=== PATIENT | female | born 1990 | race Hispanic/Latino ===

== ENCOUNTER 2017-11-24 23:25 | Emergency (ER) | payer OTHER ==
[2017-11-25] MEDS ORDERED: NA CHLORIDE 0.9% 500 ML ONE (00:29)
[2017-11-25] MEDS ORDERED: ACETAMINOPHEN 325 MG TABLET ONE (00:30)
[2017-11-25 00:37] LABS: Absolute Lymphocytes (CBC) 2.7 K/uL (0.7-4.9); Absolute Monocytes 0.6 K/uL (0.1-1.3); Absolute Neutrophil 7.1 K/uL (1.8-8.0); Basophils % 0.3 % (0-1.3); Eosinophils % 2.1 % (0-4.4); Hematocrit 37.3 % (36.0-45.0); Lymphocytes % 25.3 % (15.3-44.8); MCH 29.6 pg (27.0-35.0); MCV 86.8 fL (80-100); MPV 10.2 fL (7.6-11.3)
[2017-11-25 00:40] LABS: Urine RBC >50 /HPF (NONE SEEN)
[2017-11-25 00:41] LABS: Urine Bacteria <20 /HPF (<20); Urine Culture Reflex Order REFLEXED; Urine Trichomonas PRESENT (NONE SEEN)
[2017-11-25 00:51] LABS: BUN Blood Urea Nitrogen 8 mg/dL (6-20); Bicarbonate 27 mEq/L (21-31); Glucose Level 91 mg/dL (65-120); Potassium 3.5 mEq/L (3.6-5.0); Sodium Level 136 mEq/L (135-145)
[2017-11-25 01:06] LABS: HCG, Quantitative 810.3 mIU/mL (<5)
[2017-11-25 01:16] LABS: Urine Blood 3+ (NEG); Urine Glucose NEGATIVE (NEG); Urine Protein TRACE (NEG)
--- NOTE | 2017-11-25 01:48 | ER ---
Nurse's Notes [facility] Name: Dorothea Wills Age: 27 yrs Sex: Female : 1990 Arrival Date: 11/24/2017 Time: 23:28 Bed 13 Private MD: Diagnosis: Pelvic pain. demise. Vaginal bleeding. Urinary tract infection Presentation: 11/24 23:30 Presenting complaint: Patient states: that she is approx 12 weeks . This am she fc started to have bright red bleeding and then started to cramp at 1900. States that 10 days ago she went to have ultrasound [facility] and was told that baby had no heart beat. Then went to see Dr Gamino this past and was told to come to ER is any problems but does have follow up tomorrow. Transition of care: patient was not received from another setting of care. Onset of symptoms was November 24, 2017. Risk Assessment: Do you want to hurt yourself or someone else? Patient reports no desire to harm self or others. Initial Sepsis Screen: Does the patient meet any 2 criteria? No. Patient's initial sepsis screen is negative. Does the patient have a suspected source of infection? No. Patient's initial sepsis screen is negative. Care prior to arrival: None. 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 - Social history:: Smoking status: Patient uses tobacco products, denies chronic smoking, but will smoke occasionally. - Ebola Screening: : Patient negative for fever greater than or equal to 101.5 degrees Fahrenheit, and additional compatible Ebola Virus Disease symptoms Patient denies exposure to infectious person Patient denies travel to an Ebola-affected area in the 21 days before illness onset. Screenin:53 Abuse screen: Denies threats or abuse. Nutritional screening: No deficits noted. fc Tuberculosis screening: No symptoms or risk factors identified. Fall Risk None identified. Assessment: 11/25 00:05 Obstetrical Assessment: General assessment: awake and alert. General: Appears in no bs1 apparent distress. uncomfortable, Behavior is calm, cooperative, appropriate for age. Pain: Complains of pain in lower abdomen. Neuro: Level of Consciousness is awake, alert, obeys commands, Oriented to person, place, time, situation, Appropriate for age. Cardiovascular: Denies chest pain, shortness of breath, Heart tones S1 S2 present Capillary refill < 3 seconds Patient's skin is warm and dry. Respiratory: Airway is patent Trachea midline Respiratory effort is even, unlabored, Respiratory pattern is regular, symmetrical, Breath sounds are clear bilaterally. GI: Abdomen is round Bowel sounds present X 4 quads. Reports lower abdominal pain, nausea. : Reports vaginal bleeding that is with clots, moderate flow. EENT: No signs and/or symptoms were reported regarding the EENT system. Derm: Skin is intact, Skin is pink, warm \T\ dry. Musculoskeletal: Circulation, motion, and sensation intact. Capillary refill < 3 seconds, Range of motion: intact in all extremities. 01:15 Reassessment: Patient appears in no apparent distress at this time. Patient and/or bs1 family updated on plan of care and expected duration. Pain level reassessed. Patient is alert, oriented x 3, equal unlabored respirations, skin warm/dry/pink. 02:15 Reassessment: No changes from previously documented assessment. Patient and/or family bs1 updated on plan of care and expected duration. Pain level reassessed. Patient is alert, oriented x 3, equal unlabored respirations, skin warm/dry/pink. Patient denies pain at this time. Vital Signs: 11/24 23:30 BP 101 / 63; Pulse 107; Resp 18; Temp 98.0(O); Pulse Ox 100% on R/A; Weight 60.78 kg fc (R); Height 5 ft. 1 in. (154.94 cm) (R); Pain /10; 11/25 01:51 BP 100 / 66; Pulse 63; Resp 18; Pulse Ox 99% on R/A; cc 11/24 23:30 Body Mass Index 25.32 (60.78 kg, 154.94 cm) Vitals: 00:40 Heart Tones unable to assess. Patient reports ultrasound having no heartbeat last bs1 Saturday. . ED Course: 11/24 23:28 Patient arrived in ED. es 23:30 Arm band placed on Patient placed in an exam room, on a stretcher. fc 23:30 Patient has correct armband on for positive identification. Placed in gown. Bed in low fc position. Call light in reach. 23:44 Olga Marcus, RN is Primary Nurse. bs1 23:52 Triage completed. fc 11/25 00:05 Inserted saline lock: 20 gauge in left antecubital area, using aseptic technique. Blood bs1 collected. 00:16 Rashid Chris MD is Attending Physician. pkl 01:35 Assist provider with pelvic exam: Set up pelvic tray. Performed by Rashid Chris MD Patient bs1 tolerated well. 01:45 Julius Gamino MD is Referral Physician. pkl 02:00 IV discontinued, bleeding controlled, No redness/swelling at site. Pressure dressing bs1 applied. Administered Medications: 00:33 Drug: NS 0.9% 500 ml Route: IV; Rate: bolus; Site: left antecubital; bs1 02:20 Follow up: IV Status: Completed infusion bs1 00:34 Not Given (Duplicate Order): NS 0.9% 500 ml IV at bolus once bs1 00:34 Drug: Tylenol 650 mg Route: PO; bs1 02:20 Follow up: Response: No adverse reaction bs1 01:57 Drug: Flagyl 500 mg Route: PO; bs1 02:20 Follow up: Response: No adverse reaction bs1 01:58 Drug: [place] (7.5 mg-325 mg) 1 tabs Route: PO; bs1 02:20 Follow up: Response: No adverse reaction bs1 Point of Care Testing: Urine : 00:39 hCG Reading: Positive; Control Reading: Positive; bs1 Outcome: 01:47 Discharge ordered by . pkl 01:59 Discharged to home with friend, Dr Chris requested patient call for a ride because bs1 patient drove herself and was given norco. Patient states that her ride is in the lobby waiting. 01:59 Condition: stable 01:59 Discharge instructions given to patient, Instructed on discharge instructions, follow up and referral plans. medication usage, Demonstrated understanding of instructions, follow-up care, medications, Prescriptions given X 1. 02:21 Patient left the ED. bs1 Signatures: Rashid Chris MD MD pkl Salyer, Edna es Chretien, Felicia, RN RN Iliana Jiang Brittany, RN RN bs1
--- NOTE | 2017-11-25 01:48 | EDPHYS ---
Physician Documentation [facility] Name: Dorothea Wills Age: 27 yrs Sex: Female : 1990 Arrival Date: 11/24/2017 Time: 23:28 Bed 13 Private MD: ED Physician Rashid Chris HPI: 11/25 01:32 This 27 yrs old Female presents to ER via Ambulatory with complaints of pkl Vaginal Bleeding, + Preg <12wks. 01:32 The patient presents with pelvic pain, vaginal bleeding that is. Onset: The pkl symptoms/episode began/occurred just prior to arrival, 4 hour(s) ago. Associated signs and symptoms: Pertinent positives: Lower abdominal cramps. 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 Follow up with Dr. Gamino 5 days ago and has another appointment in the morning.. 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 - Social history:: Smoking status: Patient uses tobacco products, denies chronic smoking, but will smoke occasionally. - Ebola Screening: : Patient negative for fever greater than or equal to 101.5 degrees Fahrenheit, and additional compatible Ebola Virus Disease symptoms Patient denies exposure to infectious person Patient denies travel to an Ebola-affected area in the 21 days before illness onset. ROS: 11/25 01:32 Positive for pelvic pain, vaginal bleeding. pkl Eyes: Negative for injury, pain, redness, and discharge, ENT: Negative for injury, pain, and discharge, Neck: Negative for injury, pain, and swelling, Cardiovascular: Negative for chest pain, palpitations, and edema, Respiratory: Negative for shortness of breath, cough, wheezing, and pleuritic chest pain. Abdomen/GI: Positive for abdominal pain, of the suprapubic area. Back: Negative for acute changes. MS/extremity: Negative for acute changes. Skin: Negative for rash. Neuro: Negative for altered mental status. Exam: 01:32 Head/Face: Normocephalic, atraumatic. Eyes: Pupils equal round and reactive to light, pkl extra-ocular motions intact. Lids and lashes normal. Conjunctiva and sclera are non-icteric and not injected. Cornea within normal limits. Periorbital areas with no swelling, redness, or edema. ENT: Nares patent. No nasal discharge, no septal abnormalities noted. Tympanic membranes are normal and external auditory canals are clear. Oropharynx with no redness, swelling, or masses, exudates, or evidence of obstruction, uvula midline. Mucous membranes moist. Neck: Trachea midline, no thyromegaly or masses palpated, and no cervical lymphadenopathy. Supple, full range of motion without nuchal rigidity, or vertebral point tenderness. No Meningismus. Chest/axilla: Normal chest wall appearance and motion. Nontender with no deformity. No lesions are appreciated. Cardiovascular: Regular rate and rhythm with a normal S1 and S2. No gallops, murmurs, or rubs. Normal PMI, no JVD. No pulse deficits. Respiratory: Lungs have equal breath sounds bilaterally, clear to auscultation and percussion. No rales, rhonchi or wheezes noted. No increased work of breathing, no retractions or nasal flaring. 01:32 Abdomen/GI: Bowel sounds: normal, Palpation: soft, mild abdominal tenderness, in the suprapubic area. 01:32 Back: Exam negative for acute changes. 01:32 : Pelvic Exam: Speculum exam: mild bleeding, os that is open, a female associate professor physician was present for the exam. Vital Signs: 11/24 23:30 BP 101 / 63; Pulse 107; Resp 18; Temp 98.0(O); Pulse Ox 100% on R/A; Weight 60.78 kg fc (R); Height 5 ft. 1 in. (154.94 cm) (R); Pain 4/10; 11/25 01:51 BP 100 / 66; Pulse 63; Resp 18; Pulse Ox 99% on R/A; cc 11/24 23:30 Body Mass Index 25.32 (60.78 kg, 154.94 cm) fc MDM: 00:16 Patient medically screened. pkl 01:32 Data reviewed: vital signs, nurses notes, lab test result(s). ED course: Advised to pk keep appoint with Dr. Gamino in the morning. Advised to return if abdominal pain is worse or bleeding is worse or passing blood clots and tissue. 11/25 00:14 Order name: Urine Dipstick--Ancillary (enter results); Complete Time: : eb 11/25 00:14 Order name: Urine --Ancillary (enter results); Complete Time: : eb 11/25 00:15 Order name: Urine Microscopic Only; Complete Time: : bs1 11/25 00:27 Order name: CBC with Diff; Complete Time: : pkl 11/25 00:27 Order name: Chem 7; Complete Time: : pkl 11/25 00:27 Order name: Quantitative Hcg; Complete Time: 01: pkl 11/25 00:42 Order name: Urine Culture EDMS Administered Medications: 00:33 Drug: NS 0.9% 500 ml Route: IV; Rate: bolus; Site: left antecubital; bs1 02:20 Follow up: IV Status: Completed infusion bs1 00:34 Not Given (Duplicate Order): NS 0.9% 500 ml IV at bolus once bs1 00:34 Drug: Tylenol 650 mg Route: PO; bs1 02:20 Follow up: Response: No adverse reaction bs1 01:57 Drug: Flagyl 500 mg Route: PO; bs1 02:20 Follow up: Response: No adverse reaction bs1 01:58 Drug: [place] (7.5 mg-325 mg) 1 tabs Route: PO; bs1 02:20 Follow up: Response: No adverse reaction bs1 Point of Care Testing: Urine : 00:39 hCG Reading: Positive; Control Reading: Positive; bs1 Disposition: 11/25/17 01:47 Discharged to Home. Impression: Pelvic pain. demise. Vaginal bleeding. Urinary tract infection. - Condition is Stable. - Prescriptions for Flagyl 500 mg Oral Tablet - take 1 tablet by ORAL route every 8 hours for 7 days; 21 tablet. - Medication Reconciliation Form, Thank You Letter, Antibiotic Education, Prescription Opioid Use form. - Follow up: Julius Gamino MD; When: Today; Reason: Re-evaluation by your physician. - Problem is new. - Symptoms have improved. Signatures: Dispatcher [employer] EDRashid Ruiz MD MD pkl Chretien, Felicia, RN RN Olga Marcus RN RN bs1 Corrections: (The following items were deleted from the chart) 02:21 01:47 11/25/2017 01:47 Discharged to Home. Impression: Pelvic pain. demise. bs1 Vaginal bleeding. Urinary tract infection. Condition is Stable. Forms are Medication Reconciliation Form, Thank You Letter, Antibiotic Education, Prescription Opioid Use. Follow up: Julius Gamino; When: Today; Reason: Re-evaluation by your physician. Problem is new. Symptoms have improved. pkl
[2017-11-25] MEDS ORDERED: HYDROCODONE/APAP 7.5/325 MG TAB ONE (01:55)
[2017-11-25] MEDS ORDERED: metroNIDAZOLE 500 MG TABLET ONE (01:55)
[2017-11-25 03:51] VITALS: TEMP 98
[2017-11-25 03:52] VITALS: BP 100/66; O2SAT 99
== END 2017-11-25 02:21 | disposition home or self-care (01) ==
LOC: ER 23:25
DX: O02.1 Missed abortion (principal); N39.0 Urinary tract infection, site not specified; F17.200 Nicotine dependence, unspecified, uncomplicated
CPT/HCPCS: 36415; 80048; 81003; 81015; 81025; 84702; 85025; 87086; 87088; 96360; 96361; 99284

== ENCOUNTER 2020-02-11 04:18 | Inpatient (IN) | payer OTHER ==
[~2020-02-11 04:18] MED LIST: BUTORPHANOL 1 MG/ML INJ IV PRN; CARBOPROST TROME 250 MCG/ML IM PRN; METHYLERGONOVINE 0.2MG/ML AMP IM PRN; OXYTOCIN/LR 20 UNIT/1,000 ML BAG IV SCH; PENICILLIN 5 MU in NA CHLORIDE 0.9% 100 ML IV ONE; PENICILLIN G POT 5 MU/100 ML IVPB IV ONE; PROMETHAZINE INJ 25 MG/ML AMP IM PRN; Ringers Lactate 1,000 ML IV PRN; Ringers Lactate 1,000 ML IV SCH
--- OUTSIDE RECORDS SUMMARY | 2020-02-11 04:20 | XMS REPORT | Continuity of Care Document ---
:1990 Author Organization [facility] t Address [address] [place] [address] Care Team Providers Name Role Phone Lab, Luiz Pob I Attending Clinician Unavailable Nilson Foy Attending Clinician Problems This patient has no known problems. Allergies, Adverse Reactions, Alerts This patient has no known allergies or adverse reactions. Medications This patient has no known medications. Procedures This patient has no known procedures. Encounters Start End Encounter Admission Attending Care Care Encounter Source Date/Time Date/Time Type Type Clinicians Facility Department ID 2019-12-08 2019-12-08 Laboratory Lab, [facility] [id number] 15:53:07 16:13:07 Only Fam [facility] [id number] [place] [id number] Professio [id number] [address]al [address] 2019-01-05 2019-01-05 Office RIKY [facility] [id number] 13:23:05 14:22:38 Visit Katiana Devine [employer]AL [employer]AMINER [id number] [facility] [id number] MATERNAL [id number] & CHILD [address] [place] [address] Results This patient has no known results.
[2020-02-11 05:03] VITALS: BMI 29.2
[2020-02-11] MEDS ORDERED: Ringers Lactate 1,000 ML IV ONE ×2 (05:21→05:45)
[2020-02-11 05:33] LABS: Absolute Lymphocytes (CBC) 2.3 K/uL (0.7-4.9); Basophils % 0.5 % (0-1.3); Lymphocytes % 23.6 % (15.3-44.8); MPV 10.1 fL (7.6-11.3); RBC Red Blood Cell Count 4.11 M/uL (3.86-4.86)
[2020-02-11 05:45] LABS: Urine Appearance CLOUDY; Urine Bilirubin NEGATIVE (NEG); Urine Blood TRACE (NEG); Urine Color YELLOW; Urine Glucose NEGATIVE (NEG); Urine Protein NEGATIVE (NEG); Urine Urobilinogen 0.2 mg/dL (0.2-1.0)
[2020-02-11] MEDS ORDERED: OXYTOCIN/LR 20 UNIT/1,000 ML BAG IV ONE (05:45)
[2020-02-11 05:49] LABS: Urine Microscopic Reflex ORDER UMIC
[2020-02-11 05:57] LABS: Urine Bacteria 20-50 /HPF (<20); Urine Culture Reflex Order REFLEXED; Urine RBC NONE SEEN /HPF (NONE SEEN)
--- NOTE | 2020-02-11 08:05 | PREOPHP ---
Date of Admission: 02/11/2020 Dorothea Wills is a 29-year-old 4, para 2, 39 weeks gestation. Maricruz regularly, 3 cm, 50% effaced, but the baby is still too high to rupture membranes safely. The patient knows if membranes rupture spontaneously, she is to tell the nurse to check her quickly, so we can make sure we do not have any problems with cord prolapse. She is Rh positive, immune to rubella. Negative COVID, but po sitive beta strep. She has had her first dose of penicillin. Full labor talk given. Anticipate adore carson sometime later today. ROBIN/GAYLE Voice ID: [id number]
--- NOTE | 2020-02-11 08:39 | PN ---
The patient is william regularly every 2.5 minutes. Baby looks good on the monitor. Baby has co me down a little bit, still at -1 station, not quite low enough to break the bag of water, but she is already now 3.5 cm. So, she is making progress even without rupture membranes. We will check her i n about an hour or 2, and at that point the baby should be low enough to rupture membranes or they sh ould rupture on own. If the membranes rupture, the patient to notify the nurse so she can be checked immediately. ROBIN/GAYLE Voice ID: [id number] Report ID: [id number]
[2020-02-11] MEDS ORDERED: PENICILLIN 2.5 MU in NA CHLORIDE 0.9% 100 ML IV SCH (10:00)
[2020-02-11] MEDS ORDERED: LIDOCAINE 1% MPF 30 ML VIAL ONE (13:15)
--- NOTE | 2020-02-11 14:57 | PN ---
The patient is 4.5 cm, still somewhat posterior and the baby during the contraction is fairly well ap plied, but only for a few seconds and then moved back up a little bit. Continue to wait until the ba by descends a little bit more. She is on 18 milliunits, will go up to 22 gradually. I will check he r again in an hour. Once again, she knows if membrane ruptures spontaneously, to tell the nurse. ROBIN/GAYLE Voice ID: [id number] Report ID: [id number]
[2020-02-11] MEDS ORDERED: Oxycodone HCl/Acetaminophen 1 TAB TAB PO PRN ×2 (15:11)
[2020-02-11] MEDS ORDERED: DOCUSATE NA/SENNA CONC 1 TAB PO PRN (15:11)
[2020-02-11] MEDS ORDERED: ACETAMINOPHEN 500 MG TAB PO PRN (15:11)
[2020-02-11] MEDS ORDERED: BISACODYL 10 MG RECTAL SUPP PR PRN (15:11)
[2020-02-11] MEDS ORDERED: DIPHENHYDRAMINE 25 MG TAB/CAP PO PRN (15:11)
[2020-02-11] MEDS ORDERED: OXYTOCIN/LR 20 UNIT/1,000 ML BAG IV SCH (16:00)
[2020-02-11] MEDS: METHYLERGONOVINE 0.2 MG TAB PO SCH ×2 (16:45→20:45)
[2020-02-11] MEDS: IBUPROFEN 200 MG TAB PO PRN (23:10)
[2020-02-11 23:32] LABS: RPR (Rapid Plasma Reagin) NON-REACT (NON-REACT)
[2020-02-12] MEDS: METHYLERGONOVINE 0.2 MG TAB PO SCH ×2 (00:45→04:50)
--- NOTE | 2020-02-12 00:51 | OP ---
Surgeon: Julius Gamino MD Subjective: A 29-year-old 4, para 2, 39 weeks' gestation, Rh positive, immune to rubella, CO VID negative, beta strep positive. Received 3 doses of penicillin during the labor. At 5 cm, ruptur e of membranes was performed. The patient went rapidly to complete. She used Lamaze breathing techn iques throughout the labor. Second stage of about 15 minutes or less. Spontaneous vaginal delivery of a 7-pound 11-ounce male infant, Apgars 9 and 9 or even 9 and 10. Small second-degree laceration r epaired with 2-0 chromic under local infiltration. Grey delivery of the placenta inspected and not ed to be intact and normal other than heavily calcified, mild hypotonus, 0.2 mg of Methergine IM, as well as IV drip Pitocin and massage. Estimated blood loss 400 cc. The patient tolerated all procedu res well. Final Diagnoses: Term intrauterine at 39 weeks, vaginal delivery, penicillin prophylaxis, natural childbirth. ROBIN/GAYLE Voice ID: [id number] Report ID: [id number]
[2020-02-12] MEDS: IBUPROFEN 200 MG TAB PO PRN (07:55)
[2020-02-12] MEDS ORDERED: Tdap (Diph,Pertuss(Acell),Tet Vac) 0.5 ML SYR IMVAC ONE (16:15)
[2020-02-12 16:21] VITALS: BP 100/64; TEMP 97.4
--- NOTE | 2020-02-13 03:59 | DS ---
Date of Discharge: 02/12/2020 This is a 29-year-old, 4, para 2, at 39 weeks gestation, delivered of 7 pounds 11 ounces male , Apgars 9 and 9. Small second-degree laceration, repaired with 2-0 chromic with local infiltration. Grey delivery of the placenta. Mild uterine hypotonus. 400 cc estimated blood loss. 0.2 mg of Methergine IM and IV drip Pitocin plus massage. The patient had 3 doses of penicillin during the labor secondary to positive strep status, afebrile, ambulating and voiding. Lochia is normal. She will be dismissed later today to report back to my office in 6 weeks for followup to report any temperature elevation of 100 degrees or greater, severe pain, heavy bleeding, or any other type of abnormalities. She requests no analgesics on dismissal. She will be given a Tdap immunization before she leaves. Final Diagnoses: Intrauterine gestation, 39 weeks, vaginal delivery, natural childbirth. Mild uterine hypotonus. Penicillin prophylaxis. ROBIN/GAYLE Voice ID: [id number] Report ID: [id number]
[2020-02-17 03:36] LABS: HBsAG Nonreactive (Nonreactive)
--- NOTE | 2020-02-17 14:00 | PN ---
The patient is now good 5.5 cm, 70% vertex, -1 to 0 station, well applied, ruptured membranes, clear fluid. FHTs normal, reactive. The patient states that on ultrasound they saw nuchal cord, but seen no problems right now. Baby looks excellent on the monitor. Anticipate more rapid progress. The pradeep noonan is anticipating natural childbirth. She knows if she wants an epidural, she needs this before she gets to 8-9 cm or it will be too late. ROBIN/GAYLE Voice ID: [id number] Report ID: [id number]
== END 2020-02-12 18:40 | disposition home or self-care (01) | DRG 807 ==
LOC: 2ND-WC 04:18
PROVIDERS: ADMIT Specialist; ATTEND Specialist
PROC: 10E0XZZ Delivery of Products of Conception, External Approach (ICD-10-PCS; principal; 2020-02-12)
PROC: 0KQM0ZZ Repair Perineum Muscle, Open Approach (ICD-10-PCS; 2020-02-12)
DX: O99.824 Streptococcus B carrier state complicating childbirth (principal); Z37.0 Single live birth; O70.1 Second degree perineal laceration during delivery; Z3A.39 39 weeks gestation of pregnancy; Z20.828 Contact with and (suspected) exposure to other viral communicable diseases
CPT/HCPCS: 36415; 81003; 81015; 85025; 86592; 86850; 86900; 86901; 87086; 87088; 87340; 90471; 90715; J2210; J2590; J7120; U0003